=== PATIENT | female | born 1970 | race African-American/Black ===

== ENCOUNTER 2020-02-16 07:52 | Outpatient (CLI) | payer OTHER, SELFPAY ==
--- NOTE | ~2020-02-16 | MM_ITS ---
EXAMINATION: MM screening ilya BI w eladia HISTORY: Screening TECHNIQUE: Craniocaudal and mediolateral oblique 3-D tomosynthesis images were obtained and synthetic 2-D images were generated. CAD analysis was submitted and interpreted. COMPARISON: Comparison to multiple prior studies sequentially, with oldest reviewed study dated 10/08. BREAST PARENCHYMAL COMPOSITION: The breasts are heterogenously dense, which may obscure small masses. FINDINGS: There is no evidence of suspicious mass, calcification, or architectural distortion to sugg est malignancy in either breast. There has been no suspicious interval change. IMPRESSION: 1. No mammographic evidence of malignancy. 2. Recommend routine screening mammography in one year. BI-RADS Category 2: Benign finding(s). Reviewed, dictated and finalized at location A.
== END 2020-02-16 07:53 | disposition home or self-care (01) ==
LOC: ANHIMG 07:55
PROVIDERS: PCP Family Medicine; Visit Provider Family Medicine
DX: Z12.31 Encounter for screening mammogram for malignant neoplasm of breast (principal)
CPT/HCPCS: 77063; 77067

== ENCOUNTER 2021-01-24 10:58 | Outpatient (CLI) | payer OTHER, SELFPAY ==
--- NOTE | ~2021-01-24 | US_ITS ---
EXAMINATION: US pelvic complete DATE: 01/24/2021 11:25 INDICATION: Benign neoplasm of connective tissue. History of fibroids Comparison:08/15/2011 TECHNIQUE: Multiple transabdominal and endovaginal sonographic images of the pelvis performed. FINDINGS: The uterus measures 14.5 x 9.8 x 10.1 cm. Myometrium is heterogeneous with the endometrium not visualized. There are multiple uterine fibroids measuring 8.4 x 8.4 x 6.3 cm. The right ovary is not visualized. Left ovary is unremarkable measuring 3.3 x 3.6 x 2.3 cm. There is no free fluid in the pelvis. There are no abnormal masses seen on either side. IMPRESSION: 1. Enlarged fibroid uterus. Largest discrete fibroid measures 8.4 cm. Reviewed, dictated and finalized at location A.
== END 2021-01-24 10:59 | disposition home or self-care (01) ==
LOC: ANHIMG 11:01
PROVIDERS: PCP Family Medicine; Visit Provider Physician Assistant
DX: D64.9 Anemia, unspecified (principal); D25.9 Leiomyoma of uterus, unspecified
CPT/HCPCS: 76856

== ENCOUNTER 2021-03-01 14:16 | Outpatient (CLI) | payer OTHER, SELFPAY ==
--- NOTE | ~2021-03-01 | MM_ITS ---
EXAMINATION: MM screening ilya BI w eladia HISTORY: Screening mammogram TECHNIQUE: Craniocaudal and mediolateral oblique 3-D tomosynthesis images were obtained and synthetic 2-D images were generated. CAD analysis was submitted and interpreted. COMPARISON: No prior mammogram is available for comparison at this institution. BREAST PARENCHYMAL COMPOSITION: The breasts are heterogeneously dense, which may obscure small masses . FINDINGS: Scattered bilateral benign calcifications. There is no evidence of suspicious mass, calcifi cation, or architectural distortion to suggest malignancy in either breast. There has been no suspici ous interval change. IMPRESSION: 1. No mammographic evidence of malignancy. 2. Recommend routine screening mammography in one year. BI-RADS Category 2: Benign finding(s). Reviewed, dictated and finalized at location A.
== END 2021-03-01 14:17 | disposition home or self-care (01) ==
PROVIDERS: PCP Family Medicine; Visit Provider Family Medicine
DX: Z12.31 Encounter for screening mammogram for malignant neoplasm of breast (principal)
CPT/HCPCS: 77063; 77067

== ENCOUNTER 2021-03-30 01:28 | Day surgery (SDC) | payer OTHER, SELFPAY ==
[2021-03-15 14:43] VITALS: BMI 25.2
[2021-03-30 06:48] VITALS: BP 158/88; PULSE 67; RESP 20; TEMP 36.3; O2SAT 99; BMI 29.0
[2021-03-30] MEDS: LACTATED RINGERS 1,000 ML 150 ML IV CONT (07:01)
--- NOTE | 2021-03-30 07:23 | PM.HPGS ---
History of Present Illness History of Present Illness Consent: Risks, benefits, and alternatives have been discussed and questions answered. Patient agrees to proceed with procedure. Chief complaint: BRUNO Narrative: Heidy Do is a 50 year old female here for first screening colonoscopy Review of Systems Constitutional: Constitutional: Denies headache(s) and Denies weakness Eyes: Eyes: Denies blurry vision ENT: Reports Normal hearing present, Denies headache(s) and Denies neck pain Cardiovascular: Cardiovascular: Denies chest pain and Denies dyspnea Respiratory: Respiratory: Denies dyspnea Gastrointestinal: Gastrointestinal: Reports no additional gastrointestinal complaints Genitourinary: Genitourinary: Denies dysuria Musculoskeletal: Musculoskeletal: Denies neck pain Integumentary/Breasts: Skin/Breast: Denies dry skin Neurologic: Reports Normal hearing present, Denies headache(s) and Denies weakness Psychiatric: Psychiatric: Denies anxiety Endocrine: Endocrine: Denies change in body appearance Hematologic/Lymphatic: Hematologic/Lymphatic: Denies easy bleeding Allergic/Immunologic: Allergic/Immunologic: Denies urticaria [facility] Past Medical History Medical History (Updated 03/30/21 @ 07:23 by Nestor Bautista MD) Colon cancer screening Leiomyoma of uterus, unspecified Family History Family History Other No family history of cardiovascular disease Social History Social History Smoking status: Never smoker Alcohol intake: never Substance use type: does not use Living arrangements: alone Spiritual care concerns: No Meds Home Medications and Allergies Home Medications Medication Instructions Recorded Confirmed Type simvastatin 5 mg tablet 5 mg PO DAILY #90 tablet 09/27/20 03/15/21 Rx atenolol 50 mg tablet See Rx Instructions .ROUTE 02/12/21 03/15/21 Rx .COMPLEX #90 tablet citalopram 20 mg tablet See Rx Instructions .ROUTE 02/12/21 03/15/21 Rx .COMPLEX #90 tablet Allergies Allergy/AdvReac Type Severity Reaction Status Date / Time No Known Allergies Allergy Verified 03/30/21 06:46 Vital Signs Vital Signs - 24 hr 03/30/21 06:48 Temperature 97.3 F L Pulse Rate 67 Respiratory Rate 20 Blood Pressure 158/88 H Pulse Oximetry 99 Exam Const: General: comfortable and no acute distress HENMT: General nose exam: Normal nares present Eyes: General: appearance normal, both eyes and all related structures Neck: Neck: no JVD Resp: Auscultation: clear to auscultation bilaterally Cardio: Rate: regular rate Rhythm: regular rhythm GI: Inspection: non-distended GI Palp: Yes Soft to palpation Skin: General skin exam: normal color Neuro: General: gait normal Speech: normal speech Extrem: General: normal to inspection Psych: Mental Status: mental status grossly normal Assessment and Plan Assessment and plan (1) Colon cancer screening: Code(s): Z12.11 - Encounter for screening for malignant neoplasm of colon Status: Acute Assessment and Plan: colonoscopy
--- NOTE | 2021-03-30 07:27 | P.PNAN_ITS ---
Anes - Initial Pre Proc Eval Procedure: Operation Date: 03/30/21 08:00 Proposed Procedures p Colonoscopy - Nestor Bautista MD Date/Time: 03/30/21 07:27 Surgeon: Nestor Bautista MD Pre Op Diagnosis: BRUNO Patient Data Age: 50 Gender: F Height: 1.68 m Weight: 81.6 kg Last Vital Signs Temp 97.3 F L 03/30/21 06:48 Pulse 67 03/30/21 06:48 Resp 20 03/30/21 06:48 BP 158/88 H 03/30/21 06:48 Pulse Ox 99 03/30/21 06:48 Allergies Allergy/AdvReac Type Severity Reaction Status Date / Time No Known Allergies Allergy Verified 03/30/21 06:46 Home Medications Medication Instructions Recorded Confirmed Type simvastatin 5 mg tablet 5 mg PO DAILY #90 tablet 09/27/20 03/15/21 Rx atenolol 50 mg tablet See Rx Instructions .ROUTE 02/12/21 03/15/21 Rx .COMPLEX #90 tablet citalopram 20 mg tablet See Rx Instructions .ROUTE 02/12/21 03/15/21 Rx .COMPLEX #90 tablet Patient hx anesthesia problems: none Family hx anesthesia problems: none Results Review: All pre-operative results and documents have been reviewed as part of the pre-operative evaluation. [facility] Past Medical History Medical History (Updated 03/30/21 @ 07:23 by Nestor Bautista MD) Colon cancer screening Leiomyoma of uterus, unspecified Family History Family History Other No family history of cardiovascular disease Social History Social History Smoking status: Never smoker Alcohol intake: never Substance use type: does not use Living arrangements: alone Spiritual care concerns: No Anes - Eval Final PreProcedure Day of Procedure 03/30/21 07:27 Patient weight: overweight Heart: regular rate and rhythm Lungs: clear to auscultation Airway: Mallampati scale class II Neurological: alert and oriented Last oral intake: >/= 8 hours ASA classification: II Emergent: no Anesthetic plan: proceed Anesthesia type and monitoring: general GIVS and standard monitoring Results Review: All pre-operative results and documents have been reviewed as part of the pre-operative evaluation. Informed Consent: The patient's anesthetic plan and its attendant risks and benefits were discussed with the patient/family/POA. Questions were solicited and answers provided to the satisfaction of the patient/family/POA.
[2021-03-30 08:14] VITALS: BP 105/63; PULSE 66; RESP 22; O2SAT 100
[2021-03-30 08:24] VITALS: BP 138/79; PULSE 73; RESP 25; O2SAT 100
[2021-03-30 08:34] VITALS: BP 116/71; PULSE 60; RESP 19; O2SAT 100
== END 2021-03-30 08:38 | disposition home or self-care (01) ==
PROVIDERS: PCP Family Medicine; Visit Provider Internal Medicine Gastroenterology
PROC: 0DJD8ZZ Inspection of Lower Intestinal Tract, Via Natural or Artificial Opening Endoscopic (ICD-10-PCS; CPT 45378; principal; 2021-03-30 08:00)
DX: Z12.11 Encounter for screening for malignant neoplasm of colon (principal); K57.30 Diverticulosis of large intestine without perforation or abscess without bleeding; K64.8 Other hemorrhoids; D50.9 Iron deficiency anemia, unspecified
CPT/HCPCS: 45378; J2704; J7120

== ENCOUNTER 2021-06-18 09:14 | Outpatient (CLI) | payer OTHER, SELFPAY ==
--- NOTE | 2021-06-18 09:44 | ECG_ITS ---
Measurements Intervals [place] Rate: 69 P: 53 OK: 153 QRS: 28 QRSD: 88 T: -4 QT: 365 QTc: 392 Interpretive Statements SINUS RHYTHM POSSIBLE LEFT ATRIAL ENLARGEMENT BORDERLINE ST-T WAVE ABNORMALITY- ANTEROLAT/INF LEADS BASELINE ARTIFACT- I, II, III, AVR, AVL, AVF BORDERLINE ECG Electronically Signed On 06-18-2021 10:12:01 COPPERSMITH APPRENTICE by Alberto Kelly D.O.
== END 2021-06-18 09:15 | disposition home or self-care (01) ==
LOC: ANHSURGERY 09:17
PROVIDERS: PCP Family Medicine; Visit Provider Obstetrics & Gynecology
DX: Z01.818 Encounter for other preprocedural examination (principal); I10 Essential (primary) hypertension; D25.9 Leiomyoma of uterus, unspecified
CPT/HCPCS: 36415; 86850; 86900; 86901; 93005

== ENCOUNTER 2021-06-20 00:18 | Day surgery (SDC) | payer OTHER, SELFPAY ==
[2021-06-13 09:01] VITALS: BMI 24.5
--- NOTE | 2021-06-13 09:11 | PC.NURSE ---
Report to the Outpatient Waiting Room, entrance under the green pavilion located off [facility], at time 10:00 on date 06/20/21. OR Time: 12:00. - You will be asked a series of questions to screen for COVID 19 for your protection. - A mask is required within the hospital. - No visitors are allowed at this time. Preoperative COVID Testing Requirements: No COVID Test needed if: (proof is required; if not received patient will have Rapid Test prior to entry) - Patient has received COVID Vaccine at least 14 days prior to procedure date or - Patient has positive COVID test result within last 90 days of surgery date. COVID Test needed if above criteria is not met Patients may have clear liquids (water, carbonated beverages, clear teas, apple juice) until 3 hours prior to surgery (9:00) with a maximum of 20 ounces. - No food from midnight until time of surgery Take the following medications with a SIP of water the morning of surgery: NONE Medications to discontinue per physician: VITAMINS/SUPPLEMENTS Date to take last dose: 06/16/21 Please no make-up, nail kazakh, hairspray, perfume, deodorant, or body powder the day of surgery. No jewelry (including any body piercings) or valuables the day of surgery, leave them at home. Please take a shower or bath the night before, or the morning of, surgery with an antibacterial soap. Wear comfortable, loose fitting clothing. - Jewelry must be removed prior to entering the operating room. Rings and piercings that are not removed may be cut off. - The hospital will not accept responsibility for valuables. - Please leave all valuables, including medications, at home the day of surgery. If you are going home after surgery, a licensed van driver must drive you home. - NO public transportation without another adult. - We recommend that an adult stay with you for 24 hours following discharge. - We also recommend that you do not drive, make important decision, drink alcoholic beverages, or take any drugs that were not prescribed by your health care provider for at least 24 hours after your discharge time. Follow any additional instructions given to you from your surgeon. Telephone instructions given to HUMAIRA AKERS and asked if any additional questions and then verbalized understanding. Patient advised to call surgeon office or pre surgery nurse liaison [phone] if any additional questions.
[2021-06-20] VITALS (9 sets, daily range): BP systolic 124–198; BP diastolic 62–88; PULSE 75–119; RESP 16–20; TEMP 35.9–36.4; O2SAT 96–100
[2021-06-20] MEDS: LACTATED RINGERS 1,000 ML 30 ML IV CONT ×2 (10:42→15:33)
[2021-06-20] MEDS: KETOROLAC 15 MG/ML VIAL (*BKC) IV PUSH (10:42)
[2021-06-20] MEDS: ACETAMINOPHEN 500 MG TABLET 1000 MG PO (10:42)
--- NOTE | 2021-06-20 11:51 | PM.IMHP ---
H&P: HPI History of Present Illness Date/Time: 06/20/21 11:51 51 y/o with a large, fibroid uterus, heavy vaginal bleeding, and anemia. She has monthly menses lasting 5 days each, with heavy flow. She regularly overflows her pads onto her clothing. Ultrasound shows an 8 cm fibroid. She is here for definitive management with hysterectomy. Chief Complaint: Here for hysterectomy Review of Systems Review of Systems: All systems reviewed & are unremarkable except as noted in HPI and below PMFSH Past Medical History Medical History Colon cancer screening Leiomyoma of uterus, unspecified Family History Family History Other No family history of cardiovascular disease Social History Social History Smoking status: Never smoker Alcohol intake: never Substance use: never Substance use type: does not use Living arrangements: alone Spiritual care concerns: No Meds Home Medications and Allergies Home Medications Medication Instructions Recorded Confirmed Type docusate sodium [Colace] 100 mg PO BID 06/13/21 06/20/21 History elderberry fruit [Elderberry] 200 mg PO DAILY 06/13/21 06/20/21 History lactobacillus comb no.10 20,000 mmu cells PO DAILY 06/13/21 06/20/21 History [Probiotic] simvastatin 5 mg PO HS 06/13/21 06/20/21 History atenolol 50 mg PO HS 06/20/21 06/20/21 History citalopram 20 mg PO HS 06/20/21 06/20/21 History Allergies Allergy/AdvReac Type Severity Reaction Status Date / Time No Known Allergies Allergy Verified 06/20/21 10:54 Vital Signs Vital Signs - 24 hr 06/20/21 10:15 Temperature 36.4 C L Pulse Rate 77 Respiratory Rate 18 Blood Pressure 144/88 H Pulse Oximetry 100 Exam Const: Orientation/consciousness: patient oriented x3 Other: Well-developed, well-nourished female in no acute distress. Neck: Thyroid: thyroid normal Lymphatic: no lymphadenopathy noted (in neck, axilla or inguinal nodes) Resp: Effort & Inspection: normal respiratory effort Auscultation: clear to auscultation bilaterally Cardio: Rate: regular rate Rhythm: regular rhythm Heart sounds: S1 normal heart sound present and S2 normal heart sound present GI: Other: ABD: Soft, nontender, nondistended. No guarding or rebound tenderness. No hepatosplenomegaly. : General: Yes no CVA tenderness Other: External genitalia: normal female hair distribution, without lesion. Urethral meatus: no lesion, non prolapsed. Bladder: no mass, nontender Vagina: well-estrogenized, without lesion or discharge. No cystocele or rectocele. Cervix: no lesion or discharge. Uterus: enlarged, difficult to appreciate due to voluntary guarding. Adnexa: no mass or tenderness. Anus/perineum: no lesions, nontender Back/Spine/Pelvis: Back: no CVA tenderness Skin: General skin exam: normal color and no rashes or lesions noted Neuro: General: patient oriented x3 Extrem: Other: Extremities: nontender with no edema Psych: Mental Status: mental status grossly normal Affect: normal affect Assessment and Plan Assessment and plan (1) Fibroid uterus: Code(s): D25.9 - Leiomyoma of uterus, unspecified Status: Acute Assessment and Plan: A: Symptomatic fibroid uterus. P: She desires definitive management with hysterectomy. I have offered her a robotic assisted TVH with bilateral salpingectomies. She understands risks of surgery to include risks of anesthesia, risks of pain, infection, bleeding, blood products, thromboembolic phenomena and damage to adjacent structures such as bowel, bladder, ureters, blood vessels and nerves. She understands hysterectomy will render her permanently sterile. She understands all these risks and elects to proceed with surgery. (2) Menometrorrhagia: Code(s): N92.1 - Excessive and frequent menst
--- NOTE | 2021-06-20 11:53 | WPDANESEPPF ---
Anes - Initial Pre Proc Eval Procedure: Operation Date: 06/20/21 12:00 Proposed Procedures p Robotic Assisted Total Vaginal Hysterectomy with Bilateral Salpingectomy - Mahesh Molina MD Date/Time: 06/20/21 11:53 Surgeon: Mahesh Molina MD Pre Op Diagnosis: Anemia, Heavy Bleeding, Fibroids, Pain Patient Data Age: 51 Gender: F Height: 1.68 m Weight: 84.5 kg Last Vital Signs Temp 97.5 F L 06/20/21 10:15 Pulse 77 06/20/21 10:15 Resp 18 06/20/21 10:15 BP 144/88 H 06/20/21 10:15 Pulse Ox 100 06/20/21 10:15 Allergies Allergy/AdvReac Type Severity Reaction Status Date / Time No Known Allergies Allergy Verified 06/20/21 10:54 Home Medications Medication Instructions Recorded Confirmed Type docusate sodium [Colace] 100 mg PO BID 06/13/21 06/20/21 History elderberry fruit [Elderberry] 200 mg PO DAILY 06/13/21 06/20/21 History lactobacillus comb no.10 20,000 mmu cells PO DAILY 06/13/21 06/20/21 History [Probiotic] simvastatin 5 mg PO HS 06/13/21 06/20/21 History atenolol 50 mg PO HS 06/20/21 06/20/21 History citalopram 20 mg PO HS 06/20/21 06/20/21 History Patient hx anesthesia problems: none Family hx anesthesia problems: none Results Review: All pre-operative results and documents have been reviewed as part of the pre-operative evaluation. [facility] Past Medical History Medical History Colon cancer screening Leiomyoma of uterus, unspecified Family History Family History Other No family history of cardiovascular disease Social History Social History Smoking status: Never smoker Alcohol intake: never Substance use: never Substance use type: does not use Living arrangements: alone Spiritual care concerns: No Anes - Eval Final PreProcedure Day of Procedure 06/20/21 11:53 Patient weight: obese Heart: regular rate and rhythm Lungs: clear to auscultation Airway: Mallampati scale class II Neurological: alert and oriented Last oral intake: >/= 8 hours ASA classification: II Emergent: no Anesthetic plan: proceed Anesthesia type and monitoring: general ETT and standard monitoring Results Review: All pre-operative results and documents have been reviewed as part of the pre-operative evaluation. Informed Consent: The patient's anesthetic plan and its attendant risks and benefits were discussed with the patient/family/POA. Questions were solicited and answers provided to the satisfaction of the patient/family/POA.
--- NOTE | 2021-06-20 12:05 | WPDHPUPDATE1 ---
History and Physical Update Update Date/Time: 06/20/21 12:05 History and Physical has been reviewed, including an updated exam of the patient. There are NO changes in the patient's condition. Risks, benefits, and alternatives have been discussed and questions answered. Patient agrees to proceed with procedure.
[2021-06-20] MEDS: ceFAZolin 2 GM/D5W 50 ML 2 GM/50 ML BAG IVPB (12:12)
--- NOTE | 2021-06-20 15:25 | W.PM.PROC2 ---
Procedure Note - Detailed Date of Procedure 06/20/21 Pre-op Diagnosis Fibroid uterus Menometrorrhagia Anemia Post-op Diagnosis same Procedure Performed Robotic assisted total vaginal hysterectomy with bilateral salpingectomies. Surgeon Mahesh Molina MD Anesthesia general Findings Large, fibroid uterus. Normal-appearing tubes and ovaries. Description of Procedure The patient was taken to the operating room where general endotracheal anesthesia was administered. She was prepared and draped in the usual sterile fashion in the dorsal lithotomy position. The bladder was drained with Carney catheter. The cervix was visualized and the anterior lip was grasped using a single-tooth tenaculum. The cervix was gently dilated using Hegar dilators. The MARCUS 2 uterine manipulator was then placed and the tenaculum was removed. Gloves were changed and attention was turned to the abdomen. A supraumbilical skin incision was made with the scalpel. The Veress needle was advanced and pneumoperitoneum was administered using carbon dioxide gas. The bladeless trocar was then advanced. Intraperitoneal placement was confirmed using the laparoscope. Lateral ports and an drug safety assistant port were all placed using bladeless trocars under direct laparoscopic visualization. She was placed in Trendelenburg position and the patient cart was docked. I assumed the console. The ureters were visualized bilaterally. The round ligament on the right was divided. The infundibulopelvic ligament was divided. The broad ligament was divided, skeletonizing the uterine artery on the right. The bladder was reflected away. The left side was similarly dissected. Colpotomy was performed circumferentially. The specimen was very large. It was divided into several pieces, then removed piecemeal in bags. The vaginal cuff was reapproximated using 0 Vicryl in interrupted [id number] fashion. The pelvis was irrigated copiously using warmed normal saline. Rigorous hemostasis was assured. The pedicles were inspected once again. The ports were then withdrawn and the gas was allowed to escape. The skin incisions were reapproximated using 4 0 Monocryl in interrupted subcuticular fashion. Dermaflex was applied externally. Sponge, lap, needle and instrument counts were correct. The patient was awakened and taken to the recovery room in stable condition. I was present and scrubbed through the entire procedure. Implants None Estimated Blood Loss 150 Drains Yes (carney) Packing No Pathology yes (uterus, cervix and tubes) Complications None Condition stable Disposition PACU
[2021-06-20] MEDS: SCOPOLAMINE 1.5 MG PATCH TRANSDERM (15:55)
[2021-06-20] MEDS: diphenhydrAMINE HCl INJ 50 MG/ML VIAL 12.5 MG IV PUSH ×2 (15:57→16:32)
--- NOTE | 2021-06-20 17:05 | PC.NURSE ---
PT arrived on unit via bed unaccompanied and sleeping. PT oriented to room 286 and surrounding area. PT introductions made and plan of care discussed per post op manager steel surgery, pain management, daily care activities. Kpad to abdomen. PT declines pain meds at this time. PT received instructions per one to one discussion and demonstrations. PT sole recipients of such instructions and no barriers to learning identified at this time. PT verbalized understanding of such care.
[2021-06-20] MEDS: METOCLOPRAMIDE HCL INJ 10 MG/2 ML VIAL IV PUSH (19:32)
[2021-06-20] MEDS: ENOXAPARIN 40 MG/0.4 ML SYRINGE SUB-Q (21:40)
[2021-06-20] MEDS: ONDANSETRON INJ 4 MG/2 ML VIAL IV PUSH (21:42)
[2021-06-21 00:17] VITALS: BP 112/62; PULSE 86; RESP 16; TEMP 36.6
[2021-06-21] MEDS: METOCLOPRAMIDE HCL INJ 10 MG/2 ML VIAL IV PUSH ×2 (01:21→07:41)
[2021-06-21] MEDS: DEXTROSE 5%/0.45% SOD CHL 1,000 ML 125 ML IV CONT (01:22)
[2021-06-21 04:00] VITALS: BP 124/64; PULSE 81; RESP 16; TEMP 36.7
[2021-06-21] MEDS: ONDANSETRON INJ 4 MG/2 ML VIAL IV PUSH (04:15)
[2021-06-21 05:29] LABS: Basophils Percent Auto 0.1 % (0.2-1.2); Hematocrit 27.4 % (37.0-47.0); Hemoglobin 8.5 g/dL (12.0-15.0); Immature Granulocyte Percent A 0.7 % (0-0.5); Lymphocytes Absolute Auto 1.12 K/mm3 (0.9-3.2); Lymphocytes Percent Auto 7.9 % (18.3-44.2); Mean Corpuscular Hemoglobin 25.1 pg (26-34); Mean Corpuscular Volume 81.1 fl (80-100); Mean Platelet Volume 10.5 fl (7.4-10.4); Monocytes Absolute Auto 0.9 K/mm3 (0.1-0.6); Monocytes Percent Auto 6.5 % (2.6-8.5); Neutrophils Percent Auto 84.8 % (45.5-73.1); Platelet Count Result 312 k/mm3 (150-375); Red Blood Count 3.38 M/mm3 (4.2-5.4); Red Cell Distribution Width 17.5 % (11.5-14.5); White Blood Count 14.1 K/mm3 (4.5-10.0)
[2021-06-21 08:37] VITALS: BP 135/66; PULSE 81; RESP 22; TEMP 36.9; O2SAT 100
--- NOTE | 2021-06-21 09:01 | PM.GYNPNOP ---
SURVEY SUPERINTENDENT - A/P Assessment and plan (1) Menometrorrhagia: Code(s): N92.1 - Excessive and frequent menstruation with irregular cycle Status: Acute (2) Fibroid uterus: Code(s): D25.9 - Leiomyoma of uterus, unspecified Status: Acute Assessment and Plan: A: POD#1, s/p robotic assisted TVHBS. Doing well. P: Home to f/u 2 weeks. Postoperative Procedures: Procedures Operation Date: 06/20/21 12:00 Actual Procedure Side Surgeon p Robotic Assisted Total Vaginal Hysterectomy with Bilateral Salpingectomy Bilateral Mahesh Molina MD Time Spent With Patient Time with patient: less than 15 minutes SURVEY SUPERINTENDENT- PN:Subj Post-Op Subjective Date/time seen: 06/21/21 09:01 Interval history: Pain OK. Tolerating diet. Voiding. Would like to go home. Exam Narrative: AVSS I/O OK ABD soft, nontender. Incisions c/d/i. EXT nontender SURVEY SUPERINTENDENT - PN: Obj Data Vital Signs Vital Signs: Vital Signs - 24 hr 06/20/21 10:15 06/20/21 15:33 06/20/21 15:45 Temperature 36.4 C L 36.2 C L Pulse Rate 77 119 H 75 Respiratory Rate 18 20 16 Blood Pressure 144/88 H 198/86 H 142/66 H Pulse Oximetry 100 100 100 06/20/21 16:00 06/20/21 16:15 06/20/21 16:30 Temperature Pulse Rate 83 75 81 Respiratory Rate 18 18 18 Blood Pressure 158/62 H 144/80 H 134/71 Pulse Oximetry 99 96 98 06/20/21 16:45 06/20/21 16:55 06/20/21 17:15 Temperature 35.9 C L Pulse Rate 82 82 77 Respiratory Rate 20 18 18 Blood Pressure 149/77 H 133/70 124/63 Pulse Oximetry 96 98 100 06/21/21 00:17 06/21/21 04:00 06/21/21 08:37 Temperature 36.6 C 36.7 C 36.9 C Pulse Rate 86 81 81 Respiratory Rate 16 16 22 H Blood Pressure 112/62 124/64 135/66 Pulse Oximetry 100 Intake/Output Intake/Output: Intake & Output 06/18/21 06/19/21 06/20/21 06/21/21 23:59 23:59 23:59 23:59 Intake Total 500 720 Output Total 80 1500 Balance 420 -780 Meds/Results Medications: Active Medications Generic Name Dose Route Start Last Admin Trade Name Freq PRN Reason Stop Dose Admin Hydrocodone Bitart/Acetaminophen 1 tab 06/20/21 15:18 Hydrocodone/Acetaminophen (*Crx) 5-325 Mg Tablet PO Q3H PRN Pain Rated 5 or Less Hydrocodone Bitart/Acetaminophen 1 tab 06/20/21 15:18 Hydrocodone/Acetaminophen (*Crx) 10-325 Mg Tablet PO Q3H PRN Pain Rated 6 or Greater Enoxaparin Sodium 40 mg 06/20/21 21:00 06/20/21 21:40 Enoxaparin 40 Mg/0.4 Ml Syringe SUB-Q 40 mg DAILY@2100 VERONICA Administration Dextrose/Sodium Chloride 1,000 mls @ 125 mls/hr 06/20/21 15:20 06/21/21 01:22 Dextrose 5% Sodium Chloride 0.45% IV CONT 125 mls/hr .Q8H VERONICA Administration Ketorolac Tromethamine 30 mg 06/20/21 15:18 Ketorolac 30 Mg/Ml Vial (*Bkc) IV PUSH 06/25/21 15:17 Q6H PRN Pain Rated 4-6 Metoclopramide HCl 10 mg 06/20/21 15:18 06/21/21 07:41 Metoclopramide Hcl Inj 10 Mg/2 Ml Vial IV PUSH 10 mg Q6H PRN Administration Nausea Morphine Sulfate 4 mg 06/20/21 15:18 Morphine Sulfate (*Crx) 4 Mg/Ml Inj IV PUSH Q4H PRN Pain Rated 7-10 Naloxone HCl 0.1 mg 06/20/21 15:18 Naloxone Hcl 0.4 Mg/Ml Vial IV PUSH Q2M PRN Respiratory rate less than 10 Ondansetron HCl 4 mg 06/20/21 15:18 06/21/21 04:15 Ondansetron Inj 4 Mg/2 Ml Vial IV PUSH 4 mg Q6H PRN Administration Nausea Simethicone 80 mg 06/20/21 15:18 Simethicone 80 Mg Tab.Chew PO Q2H PRN Gas Labs CBC & Chem 7: 06/21/21 04:21 Labs: Laboratory Results - last 24 hr 06/21/21 04:21 WBC 14.1 H RBC 3.38 L Hgb 8.5 L Hct 27.4 L MCV 81.1 MCH 25.1 L MCHC 31.0 L RDW 17.5 H Plt Count 312 MPV 10.5 H Immature Gran % (Auto) 0.7 H Neut % (Auto) 84.8 H Lymph % (Auto) 7.9 L Casey % (Auto) 6.5 Eos % (Auto) 0.0 Baso % (Auto) 0.1 L Lymph # (Auto) 1.12 Casey # (Auto) 0.9 H Eos # (Auto) 0.0 Baso # (Auto) 0.0 Abs Immat Gran (auto) 0.10 H Absolute
== END 2021-06-21 10:05 | disposition home or self-care (01) ==
LOC: ANHSURGERY 15:58 → ANHOB2 06-21 09:04
PROVIDERS: PCP Family Medicine; Visit Provider Obstetrics & Gynecology
PROC: (CPT 58554; principal; 2021-06-20 12:00)
DX: D25.1 Intramural leiomyoma of uterus (principal); D25.0 Submucous leiomyoma of uterus; D25.2 Subserosal leiomyoma of uterus; R23.4 Changes in skin texture; N80.0 Endometriosis of uterus; N92.1 Excessive and frequent menstruation with irregular cycle; D64.9 Anemia, unspecified; R10.2 Pelvic and perineal pain; E66.9 Obesity, unspecified; Z68.30 Body mass index [BMI] 30.0-30.9, adult
CPT/HCPCS: 58554; S2900; 36415; 85025; 88307; 99199; A9270; J0330; J0690; J1100; J1200; J1650; J1885; J2250; J2270; J2405; J2704; J2710; J2765; J7030; J7120

== ENCOUNTER 2022-07-09 08:37 | Outpatient (CLI) | payer OTHER, SELFPAY ==
--- NOTE | ~2022-07-09 | MM_ITS ---
EXAMINATION: MM screening ilya BI w eladia HISTORY: Screening mammogram TECHNIQUE: Craniocaudal and mediolateral oblique 3-D tomosynthesis images were obtained and synthetic 2-D images were generated. CAD analysis was submitted and interpreted. COMPARISON: 03/01/2021, 02/16/2020, 01/04/2019 bilateral screening mammogram examinations BREAST PARENCHYMAL COMPOSITION: The breasts are heterogeneously dense, which may obscure small masses . FINDINGS: Scattered bilateral benign calcifications are again noted. There is no evidence of suspicio us mass, calcification, or architectural distortion to suggest malignancy in either breast. There has been no suspicious interval change. IMPRESSION: 1. No mammographic evidence of malignancy. 2. Recommend routine screening mammography in one year. BI-RADS Category 2: Benign finding(s). Reviewed, dictated and finalized at location A. LIFT OPERATOR
== END 2022-07-09 08:38 | disposition home or self-care (01) ==
PROVIDERS: PCP Family Medicine; Visit Provider Family Medicine
DX: Z12.31 Encounter for screening mammogram for malignant neoplasm of breast (principal)
CPT/HCPCS: 77063; 77067

== ENCOUNTER 2023-07-25 08:50 | Outpatient (CLI) | payer OTHER, SELFPAY ==
--- NOTE | ~2023-07-25 | MM_ITS ---
EXAMINATION: MM screening ilya BI w eladia HISTORY: Screening mammogram TECHNIQUE: Craniocaudal and mediolateral oblique 3-D tomosynthesis images were obtained and synthetic 2-D images were generated. Bilateral rotated lateral CC views. CAD analysis was submitted and interp reted. COMPARISON: July 09, 2022, March 01, 2021 bilateral screening mammogram examinations BREAST PARENCHYMAL COMPOSITION: The breasts are heterogeneously dense, which may obscure small masses . FINDINGS: Scattered bilateral benign calcifications are again noted, in addition to some arterial mariah cification. There is no evidence of suspicious mass, calcification, or architectural distortion to lopez ggest malignancy in either breast. There has been no suspicious interval change. IMPRESSION: 1. No mammographic evidence of malignancy. 2. Recommend routine screening mammography in one year. BI-RADS Category 2: Benign finding(s). Reviewed, dictated and finalized at location A.
== END 2023-07-25 08:51 | disposition home or self-care (01) ==
LOC: ANHIMG 08:53
PROVIDERS: PCP Family Medicine; Visit Provider Family Medicine
DX: Z12.31 Encounter for screening mammogram for malignant neoplasm of breast (principal)
CPT/HCPCS: 77063; 77067

== ENCOUNTER 2024-08-04 08:07 | Outpatient (CLI) | payer OTHER, SELFPAY ==
--- NOTE | ~2024-08-04 | MM_ITS ---
EXAMINATION: MM screening ilya BI w eladia HISTORY: Screening TECHNIQUE: Craniocaudal and mediolateral oblique 3-D tomosynthesis images were obtained and synthetic 2-D images were generated. CAD analysis was submitted and interpreted. COMPARISON: 07/25/2023 and dating back to 02/16/2020 BREAST PARENCHYMAL COMPOSITION: The breasts are heterogeneously dense, which may obscure small masses . FINDINGS: Punctate calcifications detected bilaterally, vascular in origin and benign in appearance. Punctate calcifications detected bilaterally, stable and benign in appearance, and dermal in origin. Stable parenchymal pattern without suspicious microcalcifications, architectural distortion, discrete masses or significant asymmetry. IMPRESSION: 1. No mammographic evidence of malignancy. 2. Recommend routine screening mammography in one year. BI-RADS Category 2: Benign finding(s). Reviewed, dictated and finalized at location A.
--- OUTSIDE RECORDS SUMMARY | 2024-08-04 08:15 | XMS_ITS | Clinical Summary ---
Author Organization [facility] Address [facility] [place] [address] Care Team Providers Care High Speed Printer Operator Name Role Phone Francisco Rondon MD Primary Care Provider [phone] Allergies No known active allergies Medications atenolol 50 MG tablet Take 50 mg by mouth daily. Active benzonatate 200 MG capsule Take 1 capsule (200 mg total) by mouth 3 (three) times daily as needed. 30 capsule 06/14/2017 Active azithromycin (ZITHROMAX Z-ASHTYN) 250 MG tablet Take 2 tablets today then 1 tablet daily for 4 days. 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 Gender Identity Not on file Sexual Orientation Not on file Last Filed Vital Signs Vital Sign Reading Time Taken Comments Blood Pressure 157/88 06/14/2017 5:48 PM PRODUCTION LEADER Pulse 77 06/14/2017 5:48 PM PRODUCTION LEADER Temperature 37.1 C (98.7 F) 06/14/2017 5:48 PM PRODUCTION LEADER Respiratory Rate 16 06/14/2017 5:48 PM PRODUCTION LEADER Oxygen Saturation 100% 06/14/2017 5:48 PM PRODUCTION LEADER Inhaled Oxygen Concentration - - Weight 74.8 kg (165 lb) 06/14/2017 5:48 PM PRODUCTION LEADER Height 167.6 cm (5' 6 ) 06/14/2017 5:48 PM PRODUCTION LEADER Body Mass Index 26.63 06/14/2017 5:48 PM PRODUCTION LEADER Plan of Treatment Health Maintenance Due Date Last Done Comments Cervical Cancer Screening Pa p Smear (Age 30 to 64) Every 3 Years 1972 Colorectal Cancer Screening Colonoscopy (10 Years) 1972 Annual Physical 1975 Hepatitis C 1990 DTaP, Tdap and Td Vaccines ( 1 - Tdap) 1991 Hepatitis B Vaccines (1 of 3 - 19+ 3-dose series) 1991 Cervical Cancer Screening Pa p with HPV Testing (Age 30 to 64) Every 5 Years 2002 Cervical Cancer Screening with HPV 2002 Mammogram Screening 2012 Zoster Vaccines (1 of 2) 2022 COVID-19 Vaccine ( - 2023-2 5 season) 2024 Influenza Adult (#1) 2024 Meningococcal B Vaccine Aged Out No l onger eligible based on patient's age to complete this topic Meningococcal Vaccine Aged Out No dalia rupinder eligible based on patient's age to complete this topic Pneumococcal Vaccine: Pediat rics (0 to 5 Years) and At-Risk Patients (6 to 64 Years) Aged Out No longer eligible b ased on patient's age to complete this topic RSV Immunizations Under 20 Months Aged Out No longer eligible based on patient's age to complete this topic Insurance [employer] [facility] Care Teams High Speed Printer Operator Relationship Specialty Start Date End Date Francisco Rondon MD [address] [place] [address] PCP - General FAMILY PRACTICE 06/14/17
== END 2024-08-04 08:08 | disposition home or self-care (01) ==
LOC: ANHIMG 08:09
PROVIDERS: PCP Family Medicine; Visit Provider Family Medicine
DX: Z12.31 Encounter for screening mammogram for malignant neoplasm of breast (principal)
CPT/HCPCS: 77063; 77067